=== PATIENT | male | born 1935 | race African-American/Black ===

== ENCOUNTER 2017-02-07 18:19 | Emergency (ER) | payer MEDICARE, OTHER ==
[~2017-02-07] VITALS: Ht 177.8 cm; Wt 95.7 kg
[~2017-02-07 18:19] MED LIST: ATOR40TA PO; CHOL50004 PO; CLOP75TA15 PO; CYAN250010 PO; DUTA0.5C PO; FOLI1TAB16 PO; KRIL1CAP22 PO; METO-302 PO; TAMS0.4C34 PO
[2017-02-07] MEDS ORDERED: BUME0.5T3 PO (18:58)
[2017-02-07] MEDS ORDERED: CYAN250014 PO (18:58)
[2017-02-07] MEDS ORDERED: CHOL100045 PO (18:58)
[2017-02-07] MEDS ORDERED: TADA5TAB2 PO (18:58)
[2017-02-07] MEDS ORDERED: ACETAMINOPHEN ES 500 MG TABLET PO ONE (19:00)
[2017-02-07] MEDS ORDERED: KETOROLAC TROMETHAMINE 15 MG INJ IM ONE (19:00)
--- NOTE | 2017-02-07 19:10 | NUR ---
MEDICATIONS ADMINISTERED, SBAR REPORT TO PM SHIFT.
[2017-02-07] MEDS ORDERED: ACETAMINOPHEN ES 500 MG TABLET ONE (19:19)
[2017-02-07] MEDS ORDERED: KETOROLAC TROMETHAMINE 15 MG INJ ONE (19:20)
--- NOTE | 2017-02-07 19:45 | NUR ---
PATIENT STATES "I FEEL ALOT BETTER NOW."
--- NOTE | 2017-02-07 20:00 | NUR ---
Patient discharged to home in stable conditon. Written and verbal after care instructions given. Patient verbalizes understanding of instructions. WALKED OUT OF ER WITH STEADY GAIT WITH USE OF WALKER. NO DISTRESS NOTED
[2017-02-07 20:01] VITALS: BP 150/55
== END 2017-02-07 20:01 | disposition home or self-care (01) ==
LOC: ER 18:20
DX: M79.605 Pain in left leg (principal); M54.32 Sciatica, left side; I10 Essential (primary) hypertension; I25.10 Atherosclerotic heart disease of native coronary artery without angina pectoris; E66.9 Obesity, unspecified; E78.5 Hyperlipidemia, unspecified; N40.0 Benign prostatic hyperplasia without lower urinary tract symptoms; Z95.5 Presence of coronary angioplasty implant and graft; Z90.49 Acquired absence of other specified parts of digestive tract; F17.200 Nicotine dependence, unspecified, uncomplicated; E11.9 Type 2 diabetes mellitus without complications
CPT/HCPCS: 72100; A4663; J1885